=== PATIENT | female | born 1980 | race Caucasian/White ===

== ENCOUNTER 2016-06-02 16:11 | Inpatient (IN) | payer OTHER ==
[~2016-06-02] VITALS: Ht 173 cm; Wt 81.2 kg
[~2016-06-02 16:11] MED LIST: DOCU-174 PO; FERS325 PO; FentaNYL CITRATE-PF 100 MCG/2 ML VIAL IVP ONE; IBUP-2070 PO; METH850P2 PO; MIDAZOLAM HCL 2 MG/2 ML VIAL IVP ONE; PREN1TAB26 PO; RINGERS SOLUTION,LACTATED 1,000 ML IV PRN
[2016-06-02] MEDS ORDERED: METOCLOPRAMIDE HCL 5 MG/ML 2 ML VIAL IVP PRN (16:15)
[2016-06-02] MEDS ORDERED: CITRIC ACID/SODIUM CITRATE 30 ML SOLUTION UDCUP PO PRN (16:15)
[2016-06-02 16:33] VITALS: BP 110/63
[2016-06-02 16:53] LABS: BASOPHILS % (AUTO) 0.1 % (0.0-2.0); EOSINOPHILS % (AUTO) 0.4 % (1.0-6.0); HEMOGLOBIN 11.6 g/dL (12.0-16.0); LYMPHOCYTES # (AUTO) 1.2 K/uL (1.0-4.8); LYMPHOCYTES % (AUTO) 12.5 % (22.0-44.0); MEAN CORPUSCULAR HEMOGLOBIN 30.9 pg (26.0-34.0); MEAN CORPUSCULAR HGB CONC 33.2 G/dL (31.0-37.0); MEAN CORPUSCULAR VOLUME 93 fL (80-100); MONOCYTES # (AUTO) 0.5 K/uL (0.1-1.0); MONOCYTES % (AUTO) 5.7 % (2.0-9.0); NEUTROPHILS # (AUTO) 7.6 K/uL (1.8-7.7); NEUTROPHILS % (AUTO) 81.3 % (40.0-70.0); PLATELET COUNT (AUTO) 140 K/uL (150-450); RED BLOOD CELL COUNT(AUTO) 3.76 MIL/uL (4.00-5.20); RED CELL DISTRIBUTION WIDTH 12.9 % (11.5-14.5); WHITE BLOOD COUNT (AUTO) 9.3 K/uL (4.5-11.0)
[2016-06-02] MEDS ORDERED: OXYTOCIN 30 UNITS/LACT RINGERS 500 ML IV PRN (17:42)
[2016-06-02] MEDS: RINGERS SOLUTION,LACTATED 1,000 ML IV SCH ×2 (18:06→23:02)
[2016-06-02] MEDS ORDERED: OXYGEN THERAPY IH SCH (20:00)
[2016-06-02] MEDS ORDERED: FentaNYL/BUPIV 0.125%/NS/PF 200 ML ED ONE (23:13)
[2016-06-03] MEDS ORDERED: FentaNYL CITRATE-PF 100 MCG/2 ML VIAL ONE (03:36)
[2016-06-03] MEDS ORDERED: LIDOCAINE HCL/PF 2% 5 ML VIAL ONE (03:36)
[2016-06-03] MEDS ORDERED: BUPIVACAINE HCL/PF 0.25% 10 ML VIAL ONE (04:03)
[2016-06-03] MEDS ORDERED: GUM MASTIC/STORAX/MSAL/ALCOHOL LIQUID 0.67 ML VIAL TP ONE (04:25)
[2016-06-03] MEDS ORDERED: DEXAMETHASONE SOD PHOS 4 MG/ML VIAL IVP PRN (04:30)
[2016-06-03] MEDS ORDERED: MEPERIDINE-PF 25 MG/ML SYRINGE IVP PRN (04:30)
[2016-06-03] MEDS ORDERED: MORPHINE SULFATE 2 MG/ML SYRINGE IVP PRN (04:30)
[2016-06-03] MEDS ORDERED: ONDANSETRON HCL 4 MG/2 ML VIAL IVP PRN (04:30)
[2016-06-03] MEDS ORDERED: FentaNYL CITRATE-PF 100 MCG/2 ML VIAL IVP PRN ×2 (04:30)
[2016-06-03] MEDS ORDERED: PROMETHAZINE HCL 12.5 MG in SODIUM CHLORIDE 0.9% 50 ML IV PRN (04:30)
[2016-06-03] MEDS ORDERED: DiphenhydrAMINE HCL 50 MG/ML VIAL IVP PRN (04:30)
[2016-06-03] MEDS ORDERED: NALBUPHINE HCL 10 MG/ML VIAL IVP PRN (04:30)
[2016-06-03] MEDS ORDERED: RINGERS SOLUTION,LACTATED 1,000 ML IV ONE (04:37)
[2016-06-03] MEDS ORDERED: MEASLES/MUMPS/RUBELLA VACCINE, LIVE 0.5 ML/VIAL SQ ONE (04:45)
[2016-06-03] MEDS ORDERED: BENZOCAINE 20%/MENTHOL 56 GM SPRAY CANISTER TP PRN (04:45)
[2016-06-03] MEDS ORDERED: LANOLIN 7 GM OINTMENT TP PRN (04:45)
[2016-06-03] MEDS ORDERED: GLYCERIN/WITCH HAZEL LEAF 40 PADS JAR TP PRN (04:45)
[2016-06-03] MEDS ORDERED: PSEUDOEPHEDRINE HCL 30 MG TABLET PO PRN (06:15)
[2016-06-03] MEDS: PSEUDOEPHEDRINE HCL 60 MG TABLET PO PRN ×2 (07:51→17:48)
[2016-06-03] MEDS: MAGNESIUM HYDROXIDE SUSPENSION 30 ML UDCUP PO SCH ×2 (08:12→21:31)
[2016-06-03] MEDS: IBUPROFEN 600 MG TABLET PO PRN ×3 (08:13→21:31)
[2016-06-03] MEDS: OxyCODONE HCL/ACETAMINOPHEN 5-325 MG TABLET PO PRN ×3 (08:13→16:13)
[2016-06-03] MEDS ORDERED: IBUP-2070 PO (23:22)
[2016-06-04] MEDS: OxyCODONE HCL/ACETAMINOPHEN 5-325 MG TABLET PO PRN ×3 (01:52→11:40)
[2016-06-04] MEDS: MAGNESIUM HYDROXIDE SUSPENSION 30 ML UDCUP PO SCH (09:49)
[2016-06-04] MEDS ORDERED: SENNA/DOCUSATE SODIUM 187-50 MG TABLET PO ONE (10:00)
[2016-06-04] MEDS: PSEUDOEPHEDRINE HCL 60 MG TABLET PO PRN (10:12)
[2016-06-04] MEDS ORDERED: ACET1TAB12 PO (10:27)
[2016-06-04] MEDS ORDERED: IBUP-1547 PO (10:30)
[2016-06-04] MEDS: IBUPROFEN 600 MG TABLET PO PRN (11:41)
== END 2016-06-04 12:10 | disposition home or self-care (01) | DRG 767 ==
LOC: OBSVTOIN 16:11 → 4S 16:11
PROVIDERS: ADMIT Obstetrics & Gynecology; ATTEND Obstetrics & Gynecology
PROC: 10E0XZZ Delivery of Products of Conception, External Approach (ICD-10-PCS; principal; 2016-06-03)
PROC: 0UB70ZZ Excision of Bilateral Fallopian Tubes, Open Approach (ICD-10-PCS; 2016-06-03)
PROC: 0W8NXZZ Division of Female Perineum, External Approach (ICD-10-PCS; 2016-06-03)
PROC: 3E0S3CZ (ICD-10-PCS; 2016-06-03)
PROC: 3E033VJ Introduction of Other Hormone into Peripheral Vein, Percutaneous Approach (ICD-10-PCS; 2016-06-03)
PROC: 00HU33Z Insertion of Infusion Device into Spinal Canal, Percutaneous Approach (ICD-10-PCS; 2016-06-03)
DX: O69.81X0 Labor and delivery complicated by cord around neck, without compression, not applicable or unspecified (principal); O09.523 Supervision of elderly multigravida, third trimester; Z3A.40 40 weeks gestation of pregnancy; Z37.0 Single live birth; Z30.2 Encounter for sterilization
CPT/HCPCS: 86850; 86900; 86901; 88302; J2250; J2590; J3010; J3490; J7120

== ENCOUNTER 2018-03-20 17:21 | Inpatient (IN) | payer OTHER ==
[~2018-03-20] VITALS: Ht 170.2 cm; Wt 82.2 kg
[~2018-03-20 17:21] MED LIST changes: +ACET1TAB12 PO; -DOCU-174 PO; +FERR-89 PO; -FERS325 PO; -FentaNYL CITRATE-PF 100 MCG/2 ML VIAL IVP ONE; -IBUP-2070 PO; +IBUP-2071 PO; -METH850P2 PO; -MIDAZOLAM HCL 2 MG/2 ML VIAL IVP ONE; -RINGERS SOLUTION,LACTATED 1,000 ML IV PRN
[2018-03-20] MEDS ORDERED: RINGERS SOLUTION,LACTATED 1,000 ML IV PRN (18:37)
[2018-03-20] MEDS ORDERED: OXYTOCIN 30 UNITS/LACT RINGERS 500 ML IV ONE (18:37)
[2018-03-20] MEDS ORDERED: TERBUTALINE SULFATE 1 MG/ML VIAL SQ PRN (18:45)
[2018-03-20] MEDS ORDERED: CITRIC ACID/SODIUM CITRATE 30 ML SOLUTION UDCUP PO PRN (18:45)
[2018-03-20] MEDS ORDERED: METOCLOPRAMIDE HCL 5 MG/ML 2 ML VIAL IVP PRN (18:45)
[2018-03-20] MEDS ORDERED: METHYLERGONOVINE MALEATE 0.2 MG/ML VIAL IM PRN (18:45)
[2018-03-20 19:13] LABS: BASOPHILS % (AUTO) 0.2 % (0.0-2.0); EOSINOPHILS % (AUTO) 0.8 % (1.0-6.0); HEMATOCRIT 33.3 % (36-46); HEMOGLOBIN 11.3 g/dL (12.0-16.0); LYMPHOCYTES # (AUTO) 1.4 K/uL (1.0-4.8); LYMPHOCYTES % (AUTO) 16.5 % (22.0-44.0); MEAN CORPUSCULAR HEMOGLOBIN 31.9 pg (26.0-34.0); MEAN CORPUSCULAR HGB CONC 33.9 G/dL (31.0-37.0); MEAN CORPUSCULAR VOLUME 94 fL (80-100); MONOCYTES # (AUTO) 0.5 K/uL (0.1-1.0); MONOCYTES % (AUTO) 6.2 % (2.0-9.0); NEUTROPHILS # (AUTO) 6.3 K/uL (1.8-7.7); NEUTROPHILS % (AUTO) 76.3 % (40.0-70.0); PLATELET COUNT (AUTO)-OB 115 K/uL (150-450); RED BLOOD CELL COUNT(AUTO) 3.54 MIL/uL (4.00-5.20)
[2018-03-20] MEDS ORDERED: OXYGEN THERAPY IH SCH (20:00)
[2018-03-20] MEDS ORDERED: OXYTOCIN 30 UNITS/LACT RINGERS 500 ML IV PRN (20:37)
[2018-03-20 21:26] VITALS: BP 108/64
[2018-03-20] MEDS: RINGERS SOLUTION,LACTATED 1,000 ML IV SCH ×2 (22:17→22:18)
[2018-03-21] MEDS: FentaNYL CITRATE-PF 100 MCG/2 ML VIAL IVP PRN ×2 (00:18→00:24)
[2018-03-21] MEDS ORDERED: ROPIVACAINE HCL/PF 0.2% 100 ML ED ONE (04:53)
[2018-03-21] MEDS ORDERED: LIDOCAINE/PF 2% 5 ML VIAL ONE (04:53)
[2018-03-21] MEDS ORDERED: ONDANSETRON HCL 4 MG/2 ML VIAL IVP PRN (05:30)
[2018-03-21] MEDS ORDERED: DiphenhydrAMINE HCL 50 MG/ML VIAL IVP PRN (05:30)
[2018-03-21] MEDS ORDERED: NALBUPHINE HCL 10 MG/ML VIAL IVP PRN (05:30)
[2018-03-21] MEDS ORDERED: ROPIVACAINE HCL/PF 0.2% 100 ML ED PRN (05:30)
[2018-03-21] MEDS: RINGERS SOLUTION,LACTATED 1,000 ML IV SCH ×2 (06:06→09:43)
[2018-03-21] MEDS ORDERED: CeFAZolin 2 GM/DEXTROSE 50 ML IV ONE (12:15)
[2018-03-21] MEDS ORDERED: GLYCERIN/WITCH HAZEL LEAF 40 PADS JAR TP PRN (12:30)
[2018-03-21] MEDS ORDERED: ACETAMINOPHEN/CODEINE 300-30 MG TABLET PO PRN (12:30)
[2018-03-21] MEDS ORDERED: BENZOCAINE 20%/MENTHOL 56 GM SPRAY CANISTER TP PRN (12:30)
[2018-03-21] MEDS: IBUPROFEN 800 MG TABLET PO SCH ×2 (12:45→19:00)
[2018-03-21] MEDS: LANOLIN 7 GM OINTMENT TP PRN ×2 (12:45→19:03)
[2018-03-21] MEDS ORDERED: MEASLES/MUMPS/RUBELLA VACCINE, LIVE 0.5 ML/VIAL SQ ONE (16:00)
[2018-03-21] MEDS: ACETAMINOPHEN/CODEINE 300-30 MG TABLET PO PRN (19:03)
[2018-03-21] MEDS: MAGNESIUM HYDROXIDE SUSPENSION 30 ML UDCUP PO SCH (21:00)
[2018-03-22] MEDS: IBUPROFEN 800 MG TABLET PO SCH ×2 (00:36→06:52)
[2018-03-22] MEDS: ACETAMINOPHEN/CODEINE 300-30 MG TABLET PO PRN ×2 (05:06→12:37)
[2018-03-22] MEDS: MAGNESIUM HYDROXIDE SUSPENSION 30 ML UDCUP PO SCH (09:16)
[2018-03-22] MEDS ORDERED: DSS100 PO (10:04)
[2018-03-22] MEDS ORDERED: ACET-66 PO (10:05)
[2018-03-22] MEDS ORDERED: ACET-2744 PO (10:05)
[2018-03-22] MEDS ORDERED: IBUP-2070 PO (10:06)
== END 2018-03-22 13:00 | disposition home or self-care (01) | DRG 807 ==
LOC: 4S 17:21 → OBSVTOIN 17:21
PROVIDERS: ADMIT Obstetrics & Gynecology; ATTEND Obstetrics & Gynecology
PROC: 10E0XZZ Delivery of Products of Conception, External Approach (ICD-10-PCS; principal; 2018-03-21)
PROC: 0W8NXZZ Division of Female Perineum, External Approach (ICD-10-PCS; 2018-03-21)
PROC: 3E0R3BZ Introduction of Anesthetic Agent into Spinal Canal, Percutaneous Approach (ICD-10-PCS; 2018-03-21)
PROC: 00HU33Z Insertion of Infusion Device into Spinal Canal, Percutaneous Approach (ICD-10-PCS; 2018-03-21)
PROC: 10907ZC Drainage of Amniotic Fluid, Therapeutic from Products of Conception, Via Natural or Artificial Opening (ICD-10-PCS; 2018-03-21)
DX: O69.81X0 Labor and delivery complicated by cord around neck, without compression, not applicable or unspecified (principal); Z37.0 Single live birth; Z3A.39 39 weeks gestation of pregnancy
CPT/HCPCS: 86850; 86900; 86901; 90707; J0690; J2590; J2795; J3010; J3490; J7120

== ENCOUNTER 2020-02-19 02:50 | Inpatient (IN) | payer OTHER ==
[~2020-02-19] VITALS: Ht 167.6 cm; Wt 79.9 kg
[~2020-02-19 02:50] MED LIST changes: +ACET-3385 PO; -ACET1TAB12 PO; +DSS100 PO; -FERR-89 PO; +IBUP-2070 PO; -IBUP-2071 PO
[2020-02-19 03:04] VITALS: BP 132/75
[2020-02-19] MEDS ORDERED: METOCLOPRAMIDE HCL 5 MG/ML 2 ML VIAL IVP PRN (03:30)
[2020-02-19] MEDS ORDERED: RINGERS SOLUTION,LACTATED 1,000 ML IV ONE (03:30)
[2020-02-19] MEDS ORDERED: RINGERS SOLUTION,LACTATED 1,000 ML IV SCH (03:30)
[2020-02-19] MEDS ORDERED: CITRIC ACID/SODIUM CITRATE 30 ML SOLUTION UDCUP PO PRN (03:30)
[2020-02-19] MEDS ORDERED: LIDOCAINE/PF 1% 30 ML VIAL SQ PRN ×2 (03:30→05:00)
[2020-02-19] MEDS ORDERED: OXYTOCIN 30 UNITS/LACT RINGERS 500 ML IV ONE ×2 (03:30→05:00)
[2020-02-19 03:41] LABS: COVID AG,FIA SOURCE NASOPHARYNGEAL
[2020-02-19] MEDS ORDERED: BUPIVACAINE HCL/PF 0.5% 10 ML VIAL ONE (03:43)
[2020-02-19 03:44] LABS: BASOPHILS % (AUTO) 0.2 % (0.0-2.0); EOSINOPHILS % (AUTO) 0.5 % (1.0-6.0); HEMATOCRIT 35.3 % (36-46); HEMOGLOBIN 11.9 g/dL (12.0-16.0); LYMPHOCYTES # (AUTO) 1.7 K/uL (1.0-4.8); LYMPHOCYTES % (AUTO) 17.8 % (22.0-44.0); MEAN CORPUSCULAR HEMOGLOBIN 32.1 pg (26.0-34.0); MEAN CORPUSCULAR HGB CONC 33.8 G/dL (31.0-37.0); MEAN CORPUSCULAR VOLUME 95 fL (80-100); MONOCYTES # (AUTO) 0.5 K/uL (0.1-1.0); MONOCYTES % (AUTO) 5.2 % (2.0-9.0); NEUTROPHILS # (AUTO) 7.2 K/uL (1.8-7.7); NEUTROPHILS % (AUTO) 76.3 % (40.0-70.0); PLATELET COUNT (AUTO)-OB 115 K/uL (150-450); RED BLOOD CELL COUNT(AUTO) 3.71 MIL/uL (4.00-5.20); RED CELL DISTRIBUTION WIDTH 13.7 % (11.5-14.5)
[2020-02-19] MEDS ORDERED: OxyCODONE HCL/ACETAMINOPHEN 5-325 MG TABLET PO PRN (05:00)
[2020-02-19 05:42] VITALS: BP 132/75
[2020-02-19] MEDS: BENZOCAINE 20%/MENTHOL 56 GM SPRAY CANISTER TP PRN ×2 (05:52→16:56)
[2020-02-19] MEDS: GLYCERIN/WITCH HAZEL LEAF 40 PADS JAR TP PRN ×2 (05:52→16:56)
[2020-02-19] MEDS: MAGNESIUM HYDROXIDE SUSPENSION 30 ML UDCUP PO PRN ×2 (05:52→21:11)
[2020-02-19] MEDS: LANOLIN 7 GM OINTMENT TP PRN ×2 (05:52→16:56)
[2020-02-19] MEDS: IBUPROFEN 800 MG TABLET PO PRN ×3 (05:53→18:54)
[2020-02-19] MEDS: OxyCODONE HCL/ACETAMINOPHEN 5-325 MG TABLET PO PRN ×2 (15:50→23:34)
[2020-02-20] MEDS: IBUPROFEN 800 MG TABLET PO PRN ×2 (00:53→07:52)
[2020-02-20 05:51] LABS: BASOPHILS % (AUTO) 0.3 % (0.0-2.0); EOSINOPHILS % (AUTO) 0.9 % (1.0-6.0); HEMATOCRIT 30.5 % (36-46); HEMOGLOBIN 10.3 g/dL (12.0-16.0); LYMPHOCYTES # (AUTO) 2.3 K/uL (1.0-4.8); LYMPHOCYTES % (AUTO) 26.4 % (22.0-44.0); MEAN CORPUSCULAR HGB CONC 33.8 G/dL (31.0-37.0); MEAN CORPUSCULAR VOLUME 95 fL (80-100); MONOCYTES # (AUTO) 0.5 K/uL (0.1-1.0); MONOCYTES % (AUTO) 6.2 % (2.0-9.0); NEUTROPHILS # (AUTO) 5.7 K/uL (1.8-7.7); NEUTROPHILS % (AUTO) 66.2 % (40.0-70.0); PLATELET COUNT (AUTO)-OB 108 K/uL (150-450); RED BLOOD CELL COUNT(AUTO) 3.22 MIL/uL (4.00-5.20); RED CELL DISTRIBUTION WIDTH 13.8 % (11.5-14.5)
[2020-02-20] MEDS: MAGNESIUM HYDROXIDE SUSPENSION 30 ML UDCUP PO PRN (09:02)
[2020-02-20] MEDS ORDERED: IBUP-2071 PO (11:11)
== END 2020-02-20 11:30 | disposition home or self-care (01) | DRG 807 ==
LOC: OBSVTOIN 02:50 → 4S 02:50
PROVIDERS: ADMIT Obstetrics & Gynecology; ATTEND Obstetrics & Gynecology
PROC: 10E0XZZ Delivery of Products of Conception, External Approach (ICD-10-PCS; principal; 2020-02-19)
DX: O69.81X0 Labor and delivery complicated by cord around neck, without compression, not applicable or unspecified (principal); Z37.0 Single live birth; Z3A.39 39 weeks gestation of pregnancy; Z20.828 Contact with and (suspected) exposure to other viral communicable diseases; O76 Abnormality in fetal heart rate and rhythm complicating labor and delivery
CPT/HCPCS: 86850; 86900; 86901; 87426; J2590; J3490; J7120